=== PATIENT | male | born 1945 | race Caucasian/White ===

== ENCOUNTER → 2017-07-03 | Outpatient (CLI) | payer MEDICARE, OTHER ==
[~2017-07-03] MED LIST: ALLEGRA 180MG180 MG; CEPHALEXIN500 M1 PO; NORVASC 10MG10 MG; ZOCOR5 MG
[2017-07-03 17:00] LABS: CREATININE, serum 1.02 mg/dL (0.66-1.25)
== END ==
LOC: COL.LAB 16:15
PROVIDERS: Orthopaedic Surgery
DX: Z01.812 Encounter for preprocedural laboratory examination (principal)